=== PATIENT | male | born 1975 | race Caucasian/White ===

== ENCOUNTER 2024-04-13 11:50 | Inpatient (IN) | payer MEDICAID, OTHER ==
[~2024-04-13] VITALS: Ht 172.7 cm; Wt 87.0 kg
[2024-04-13 12:30] LABS: BASOPHILS % (AUTO) 0.6 % (0-1); EOSINOPHILS # (AUTO) 0.1 X10'3 (0-0.9); EOSINOPHILS % (AUTO) 3.7 % (0-6); HEMOGLOBIN 14.6 g/dl (14.0-17.9); LYMPHOCYTES # (AUTO) 1.3 X10'3 (1.1-4.8); MEAN CORPUSCULAR HEMOGLOBIN 30.4 PG (27.0-31.0); MEAN CORPUSCULAR HGB CONC 33.2 g/dL (33.0-36.5); MEAN CORPUSCULAR VOLUME 91.6 FL (78-98); MEAN PLATELET VOLUME 6.8 FL (7.4-10.4); MONOCYTES # (AUTO) 0.3 X10'3 (0-0.9); MONOCYTES % (AUTO) 7.6 % (2-12); NEUTROPHILS # (AUTO) 2.3 X10'3 (1.8-7.7); NEUTROPHILS % (AUTO) 57.1 % (42-75); PLATELET COUNT 297 X10'3 (140-440); WHITE BLOOD COUNT 4.1 X10'3 (4.5-11.0)
[2024-04-13 12:45] LABS: ALANINE AMINOTRANSFERASE 43 U/L (12-78); ALBUMIN 3.4 G/DL (3.4-5.0); ALKALINE PHOSPHATASE 49 IU/L (46-116); ANION GAP 9 (8-16); ASPARTATE AMINO TRANSFERASE 22 U/L (10-37); BILIRUBIN,TOTAL 0.5 MG/DL (0.1-1.0); BLOOD UREA NITROGEN 14 MG/DL (7-18); BUN/CREATININE RATIO 13.3 (10.0-20.0); CALCIUM 8.8 MG/DL (8.5-10.1); CHLORIDE 107 MMOL/L (99-107); CREATININE 1.05 MG/DL (0.60-1.10); GLUCOSE 113 MG/DL (70-104); POTASSIUM 4.1 MMOL/L (3.5-5.1); SODIUM 143 MMOL/L (135-145); TOTAL CARBON DIOXIDE 26.8 MMOL/L (24-32); TOTAL PROTEIN 6.8 G/DL (6.4-8.2); eCRCL 83 ML/MIN; eGFR 75 ML/MIN
[2024-04-13 12:53] LABS: PRO BRAIN NATRIURETIC PEPTIDE < 30 PG/ML (0-125)
[2024-04-13] MEDS ORDERED: magnesium Cl slow-release 64mg tablet PO PRN (15:20)
[2024-04-13] MEDS ORDERED: magnesium 4gm in 100ml NS 100 ML IV PRN (15:20)
[2024-04-13] MEDS ORDERED: potassium Cl 20 mEq SR tablet PO PRN ×2 (15:20)
[2024-04-13] MEDS ORDERED: acetaminophen 325mg tablet PO PRN (15:20)
[2024-04-13] MEDS ORDERED: potassium Cl 40MEQ/1/2NS 520ml 520 ML IV PRN (15:20)
[2024-04-13] MEDS ORDERED: mag hydrox/Alum hydrox/simeth 30ml oral suspension PO PRN (15:20)
[2024-04-13] MEDS ORDERED: HYDROcodone/acetaminophen 5mg/325mg tablet PO PRN (15:20)
[2024-04-13] MEDS ORDERED: ondansetron/PF 4mg/2ml inj IV PRN (15:20)
[2024-04-13] MEDS ORDERED: magnesium 2GM in 50ml NS 50 ML IV PRN (15:20)
[2024-04-13] MEDS: normal saline 1000ml 1,000 ML IV SCH (15:40)
[2024-04-13 15:52] LABS: HEMOGLOBIN A1C 5.4 % (4.5-6.2)
[2024-04-13 16:10] LABS: URINE AMPHETAMINE SCREEN NEGATIVE (Neg); URINE BARBITUATE SCREEN NEGATIVE (Neg); URINE BENZODIAZEPINES SCREEN NEGATIVE (Neg); URINE CANNABINOID SCREEN NEGATIVE (Neg); URINE COCAINE SCREEN NEGATIVE (Neg); URINE METHADONE SCREEN NEGATIVE (Neg); URINE OPIATE SCREEN NEGATIVE (Neg); URINE PHENCYCLIDINE SCREEN NEGATIVE (Neg)
[2024-04-13 16:15] LABS: BILIRUBIN,URINE NEGATIVE (Neg); CLARITY,URINE SLIGHTLY CLOUDY (Clear); COLOR,URINE YELLOW (Yellow); GLUCOSE, URINE NEGATIVE (Neg); KETONES,URINE NEGATIVE (Neg); LEUKOCYTE ESTERASE ,URINE NEGATIVE (Neg); NITRITES, URINE NEGATIVE (Neg); OCCULT BLOOD,URINE NEGATIVE (Neg); PH,URINE 8.5 (4.8-8.0); PROTEIN,URINE NEGATIVE (Neg); UROBILINOGEN,URINE 0.2 E.U/dL (0.2-1.0)
[2024-04-13 16:21] LABS: SQUAMOUS EPITHELIAL CELL,UR MANY /LPF (FEW); UA COLLECTION TYPE CLN CATCH MIDSTREAM
[2024-04-13 16:23] LABS: AMORPHOUS PHOSPHATES 1+
[2024-04-13 16:24] LABS: BACTERIA,URINE FEW /HPF (Neg); RBC,URINE 0-2 /HPF (0-2)
[2024-04-13 17:55] VITALS: BP 114/68; PULSE 56; RESP 21; TEMP 98.4; O2SAT 99
[2024-04-13 18:00] VITALS: BP 109/68; PULSE 72; RESP 18; TEMP 98.4; O2SAT 98
[2024-04-13] MEDS: acetaminophen 325mg tablet PO PRN (18:59)
[2024-04-13] MEDS: K and/or MAG REPLACEMENT MC SCH (19:10)
[2024-04-13] MEDS ORDERED: NO HOME MEDS (20:16)
[2024-04-13 21:06] VITALS: RESP 18; O2SAT 93
[2024-04-13 21:45] VITALS: BP 114/70; PULSE 71; RESP 18; TEMP 98.3; O2SAT 96
[2024-04-14 02:00] VITALS: BP 117/71; PULSE 60; RESP 21; TEMP 98.3; O2SAT 96
[2024-04-14 07:00] VITALS: BP 123/76; PULSE 61; RESP 18; TEMP 98; O2SAT 98
[2024-04-14 08:01] LABS: BASOPHILS % (AUTO) 0.7 % (0-1); EOSINOPHILS # (AUTO) 0.2 X10'3 (0-0.9); EOSINOPHILS % (AUTO) 3.5 % (0-6); HEMATOCRIT 41.6 % (42.0-52.0); HEMOGLOBIN 13.9 g/dl (14.0-17.9); LYMPHOCYTES # (AUTO) 1.7 X10'3 (1.1-4.8); LYMPHOCYTES % (AUTO) 35.1 % (21-51); MEAN CORPUSCULAR HEMOGLOBIN 30.8 PG (27.0-31.0); MEAN CORPUSCULAR HGB CONC 33.5 g/dL (33.0-36.5); MEAN CORPUSCULAR VOLUME 92.1 FL (78-98); MEAN PLATELET VOLUME 7.3 FL (7.4-10.4); MONOCYTES # (AUTO) 0.5 X10'3 (0-0.9); MONOCYTES % (AUTO) 9.1 % (2-12); NEUTROPHILS # (AUTO) 2.6 X10'3 (1.8-7.7); NEUTROPHILS % (AUTO) 51.6 % (42-75); PLATELET COUNT 275 X10'3 (140-440); RED BLOOD COUNT 4.51 X10'6 (4.70-6.10); RED CELL DISTRIBUTION WIDTH 13.1 % (11.5-14.5)
[2024-04-14 08:30] LABS: ANION GAP 8 (8-16); BLOOD UREA NITROGEN 13 MG/DL (7-18); BUN/CREATININE RATIO 14.1 (10.0-20.0); CALCIUM 8.5 MG/DL (8.5-10.1); CHLORIDE 109 MMOL/L (99-107); CHOL/HDL RATIO 4.3 (0.00-4.99); CHOLESTEROL 170 MG/DL (0-200); CREATININE 0.92 MG/DL (0.60-1.10); GLUCOSE 86 MG/DL (70-104); HDL CHOLESTEROL 40 MG/DL (35-60); LDL CHOLESTEROL 114 MG/DL (50-100); MAGNESIUM 2.1 MG/DL (1.5-2.4); PHOSPHORUS 3.2 MG/DL (2.3-4.5); POTASSIUM 3.8 MMOL/L (3.5-5.1); SODIUM 143 MMOL/L (135-145); TOTAL CARBON DIOXIDE 25.8 MMOL/L (24-32); TRIGLYCERIDES 129 MG/DL (20-135); eCRCL 95 ML/MIN; eGFR 88 ML/MIN
[2024-04-14 10:35] VITALS: BP_SYST 120; BP_SYST 133; BP_SYST 139; BP_DIAS 70; BP_DIAS 80; BP_DIAS 87; PULSE 69; PULSE 75; PULSE 77
[2024-04-14] MEDS: CefTRIAXone/D5W-Rocephin 1gm 50 ML IV SCH (10:54)
[2024-04-14 11:00] VITALS: BP 118/67; PULSE 85; RESP 16; TEMP 98; O2SAT 97
[2024-04-14 11:13] LABS: THYROID STIMULATING HORMONE 1.11 ulU/ml (0.34-4.50)
[2024-04-14] MEDS ORDERED: LEVO-65 PO (11:49)
== END 2024-04-14 14:06 | disposition home or self-care (01) | DRG 641 ==
LOC: ER 11:51 → ED HOLD 15:23 → PCU 3S 16:59
PROVIDERS: ADMIT Family Medicine; ATTEND Family Medicine
DX: E86.0 Dehydration (principal); N39.0 Urinary tract infection, site not specified
CPT/HCPCS: 36415; 70450; 71045; 80048; 80053; 80061; 80305; 81001; 83036; 83605; 83735; 83880; 84100; 84145; 84443; 84484; 85025; 87081; 87088; 93005; 93306; 93880; 97161; 97530; 99285; G0378; J0696; J7030

== ENCOUNTER 2025-02-25 16:24 | Emergency (ER) | payer MEDICAID ==
[~2025-02-25] VITALS: Ht 172.7 cm; Wt 71.2 kg
[~2025-02-25 16:24] MED LIST: NO HOME MEDS
[2025-02-25] MEDS: cyclobenzaprine 10mg tablet PO ONE (18:56)
[2025-02-25] MEDS ORDERED: CYCL-920 PO (19:12)
[2025-02-25] MEDS ORDERED: NAPR-56 PO (19:12)
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
[2025-02-25 20:20] VITALS: BP 133/74; PULSE 76; RESP 16; TEMP 98; O2SAT 98
== END 2025-02-25 20:10 | disposition home or self-care (01) ==
LOC: ER 16:25
DX: S06.0XAA Concussion with loss of consciousness status unknown, initial encounter (principal); S13.4XXA Sprain of ligaments of cervical spine, initial encounter; G89.11 Acute pain due to trauma; R51.9 Headache, unspecified; M62.838 Other muscle spasm; Z79.899 Other long term (current) drug therapy; V89.2XXA Person injured in unspecified motor-vehicle accident, traffic, initial encounter; X58.XXXA Exposure to other specified factors, initial encounter; Y93.89 Activity, other specified; Y92.89 Other specified places as the place of occurrence of the external cause; Y99.8 Other external cause status
CPT/HCPCS: 70450; 72125; 99284